=== PATIENT | female | born 1950 | race Asian ===

== ENCOUNTER 2019-05-03 08:19 | Emergency (ER) | payer OTHER ==
[~2019-05-03] VITALS: Ht 152.4 cm; Wt 59.0 kg
--- NOTE | 2019-05-03 08:20 | NUR ---
Patient to ER bed 7 to gown for evaluation. Side rails up. Report given to Priscilla DEJESUS.
[2019-05-03 08:34] VITALS: BP_SYST 150
--- NOTE | 2019-05-03 08:36 | NUR ---
Patient arrived via POV accompanied by family. Patient AAOx4, and ambulatory with slow gait. Patient primarily Cant[place] speaking, family for translation. Patient c/c of back pain x1 year. Patient states pain is in upper back and radiates down bilateral legs. Patient states it became worse last night, and patient was unable to sleep or rest. Will continue to follow up and monitor.
--- NOTE | 2019-05-03 08:38 | NUR ---
ER at bedside examining patient.
--- NOTE | 2019-05-03 09:13 | NUR ---
# 20 gauge angiocath placed to Right wrist. Use of asceptic technique. Opsite placed over site. Blood return noted. Blood for lab drawn from site. Flushed with 10 cc of normal saline. No evidence of infiltration noted. Patient tolerated well.
[2019-05-03] MEDS ORDERED: KETOROLAC TROMETHAMINE 30 MG VIAL IVP ONE (09:15)
[2019-05-03] MEDS ORDERED: ACETAMINOPHEN 500 MG TABLET PO ONE ×2 (09:15→10:15)
--- NOTE | 2019-05-03 09:29 | NUR ---
XR at bedside for exam.
[2019-05-03 09:51] LABS: BASOPHILS # (AUTO) 0.1 K/uL (0.0-0.2); BASOPHILS % (AUTO) 0.9 % (0.0-2.0); EOSINOPHILS % (AUTO) 0.6 % (0.0-4.0); HEMATOCRIT 31.7 % (36-48); HEMOGLOBIN 10.7 g/dL (12.0-16.0); LYMPHOCYTES # (AUTO) 0.8 K/uL (1.0-5.5); LYMPHOCYTES % (AUTO) 12.3 % (20.5-51.5); MEAN CORPUSCULAR HEMOGLOBIN 30 pg (27-31); MEAN CORPUSCULAR HGB CONC 34 % (32-36); MEAN CORPUSCULAR VOLUME 88 fL (79.0-98.0); MONOCYTES # (AUTO) 0.7 K/uL (0.0-1.0); MONOCYTES % (AUTO) 10.9 % (1.7-9.3); NEUTROPHILS # (AUTO) 4.8 K/uL (1.8-7.7); NEUTROPHILS % (AUTO) 75.3 % (40.0-70.0); PLATELET COUNT (AUTO) 366 K/uL (130-430); RED BLOOD CELL COUNT(AUTO) 3.62 MIL/uL (4.2-6.2); RED CELL DISTRIBUTION WIDTH 15.7 % (9.0-15.0); WHITE BLOOD COUNT (AUTO) 6.3 K/uL (4.8-10.8)
--- NOTE | 2019-05-03 09:57 | NUR ---
Urine specimen collected and analyzed in ER. Results given to ER .
[2019-05-03 10:00] LABS: CALCIUM 8.9 mg/dL (8.4-11.0); CREATININE 0.52 mg/dL (0.55-1.30); POTASSIUM 3.8 mmol/L (3.5-5.1); PROTHROMBIN TIME 9.8 SECS (9.5-12.5)
[2019-05-03 10:09] LABS: BILIRUBIN,URINE NEGATIVE (NEGATIVE); CLARITY/URINE CLEAR (CLEAR); COLOR,URINE YELLOW (YELLOW); GLUCOSE,URINE NEGATIVE (NEGATIVE); KETONES,URINE NEGATIVE (NEGATIVE); LEUKOCYTE ESTERASE ,URINE TRACE (NEGATIVE); NITRITE, URINE NEGATIVE (NEGATIVE); PROTEIN URINE NEGATIVE (NEGATIVE); UROBILINOGEN,URINE 0.2 (0.2-1.0)
--- NOTE | 2019-05-03 10:12 | NUR ---
MD spoke with patient regarding pain management, patient agreeable to tylenol. Will continue to follow up and monitor.
[2019-05-03 10:16] LABS: ALBUMIN 2.8 g/dL (3.4-4.8); FREE T4 (FREE THYROXINE) 0.7 ng/dL (0.6-1.6); TOTAL BILIRUBIN 0.3 mg/dL (0.0-1.0)
[2019-05-03 10:20] LABS: BLOOD, URINE TRACE (NEGATIVE)
[2019-05-03 10:22] LABS: BARBITURATE, URINE NEGATIVE (NEG <=200); BENZODIAZEPINE, URINE NEGATIVE (NEG <=150); CANNABINOID, URINE NEGATIVE (NEG <=50); COCAINE, URINE NEGATIVE (NEG <=150); METHAMPHETAMINES SCREEN,URINE NEGATIVE (NEG <=500); OPIATE, URINE NEGATIVE (NEG <=100); PHENCYCLIDINE SCREEN,URINE NEGATIVE (NEG <=25); UR TRICYCLIC ANTIDEPRESSANTS NEGATIVE (NEG <=300); URINE AMPHETAMINE NEGATIVE (NEG <=500); URINE METHADONE NEGATIVE (NEG <=200); URINE OXYCODONE SCREEN NEGATIVE (NEG <=100); URINE PROPOXYPHENE SCREEN NEGATIVE (NEG <=300)
[2019-05-03 10:32] LABS: BACTERIA,URINE FEW /HPF (None Seen); RBC,URINE 0-3 /HPF (0-3); WBC,URINE 0-3 /HPF (0-3)
[2019-05-03 10:33] LABS: MUCUS,URINE 1+ /LPF (None Seen)
[2019-05-03] MEDS ORDERED: NACL 0.9% 1,000 ML IV ONE (10:45)
--- NOTE | 2019-05-03 10:52 | NUR ---
Patient lab results reviewed by MD. Patient to have CTA and IVF. # 20 gauge angiocath placed to LAC. Use of asceptic technique. Opsite placed over site. Blood return noted. Flushed with 10 cc of normal saline. No evidence of infiltration noted. Patient tolerated well.
--- NOTE | 2019-05-03 11:20 | NUR ---
Consent signed for CTA.
--- NOTE | 2019-05-03 11:26 | NUR ---
Patient taken to CTA via gurney, escorted by [facility] interventional radiology technologist. Will continue to follow up and monitor.
[2019-05-03] MEDS ORDERED: IOHEXOL 350 mgI/mL, 150 ML INFUS..BTL IV ONE (11:27)
--- NOTE | 2019-05-03 11:45 | NUR ---
Patient brought back to room. Patient resting comfortably, needs are met at this time.
--- NOTE | 2019-05-03 11:50 | NUR ---
[facility] of care received, Pt on stable condition, family at bedside.
[2019-05-03 12:17] VITALS: BP_SYST 122
--- NOTE | 2019-05-03 12:18 | NUR ---
Patient given written and verbal discharge instructions and verbalizes understanding. ER MD discussed with patient the results and treatment provided. Patient in stable condition. ID arm band removed. IV catheter removed intact and dressing applied, no active bleeding. Rx of Ultram given. Patient educated on pain management and to follow up with PMD. Pain Scale 2/10 tolerable for patient . Opportunity for questions provided and answered. Medication side effect fact sheet provided.
== END 2019-05-03 12:17 | disposition home or self-care (01) ==
LOC: SED 08:19
DX: G89.29 Other chronic pain (principal); M54.5 Low back pain
CPT/HCPCS: 36415; 71045; 71275; 74018; 80053; 80307; 81000; 82140; 83605; 83880; 84439; 84484; 85025; 85379; 85610; 87040; 93005; 96374; 99284; J1885; J7030; Q9967

== ENCOUNTER 2020-12-22 15:13 | Inpatient (IN) | payer OTHER, SELFPAY ==
[~2020-12-22] VITALS: Ht 152.4 cm; Wt 65.8 kg
[2020-12-22 15:13] VITALS: BP_SYST 157
[2020-12-22] MEDS ORDERED: MORPHINE 2 MG/ML INJ. SYRINGE IVP ONE (17:00)
[2020-12-22] MEDS ORDERED: MORPHINE 2 MG/ML INJ. SYRINGE ONE (17:02)
[2020-12-22 17:04] LABS: EOSINOPHILS % (AUTO) 0.1 % (0.0-4.0); HEMATOCRIT 31.4 % (36-48); HEMOGLOBIN 11.7 g/dL (12.0-16.0); LYMPHOCYTES # (AUTO) 0.5 K/uL (1.0-5.5); MEAN CORPUSCULAR HEMOGLOBIN 35 pg (27-31); MEAN CORPUSCULAR HGB CONC 37 % (32-36); MEAN CORPUSCULAR VOLUME 93 fL (79.0-98.0); MONOCYTES # (AUTO) 0.5 K/uL (0.0-1.0); MONOCYTES % (AUTO) 4.8 % (1.7-9.3); NEUTROPHILS # (AUTO) 9.7 K/uL (1.8-7.7); NEUTROPHILS % (AUTO) 90.1 % (40.0-70.0); PLATELET COUNT (AUTO) 412 K/uL (130-430); RED BLOOD CELL COUNT(AUTO) 3.36 MIL/uL (4.2-6.2); WHITE BLOOD COUNT (AUTO) 10.8 K/uL (4.8-10.8)
[2020-12-22] MEDS ORDERED: ETOMIDATE 20 MG/ 10 ML VIAL (AMIDATE) ONE ×2 (17:34→17:37)
[2020-12-22 17:40] LABS: ANION GAP 11 (5-15); CALCIUM 7.8 mg/dL (8.4-11.0); CREATININE 0.91 mg/dL (0.55-1.30); GLUCOSE 112 mg/dL (70-99); POTASSIUM 3.8 mmol/L (3.5-5.1); UREA NITROGEN, BLOOD 14 mg/dL (8-21)
[2020-12-22 17:45] LABS: ALANINE AMINOTRANSFERASE 38 U/L (12-78); ALBUMIN 3.7 g/dL (3.4-4.8); ASPARTATE AMINOTRANSFERASE 49 U/L (10-37)
[2020-12-22] MEDS ORDERED: ETOMIDATE 20 MG/ 10 ML VIAL (AMIDATE) IVP ONE (17:45)
[2020-12-22 17:51] LABS: SODIUM SERUM 105 mmol/L (136-145)
[2020-12-22 17:52] LABS: CHLORIDE 73 mmol/L (98-107)
[2020-12-22] MEDS ORDERED: NACL 0.9% 1,000 ML IV SCH (18:45)
[2020-12-22] MEDS ORDERED: CABO20TA PO (18:59)
[2020-12-22] MEDS ORDERED: ASA81 PO (18:59)
[2020-12-22] MEDS ORDERED: LISI-209 PO (18:59)
[2020-12-22] MEDS ORDERED: EXEM25TA5 PO (18:59)
[2020-12-22 20:05] VITALS: BP_SYST 168
[2020-12-22 20:40] VITALS: BP_SYST 155
[2020-12-22] MEDS ORDERED: LORazepam 2 MG/ML VIAL IVP PRN (21:30)
[2020-12-22] MEDS ORDERED: NALOXONE HCL 0.4 MG/ML AMP (NARCAN) IVP PRN ×2 (21:30)
[2020-12-22] MEDS ORDERED: ACETAMINOPHEN 325 MG TABLET PO PRN (21:30)
[2020-12-22] MEDS ORDERED: ONDANSETRON HCL 4 MG/2 ML VIAL IVP PRN (21:30)
[2020-12-22] MEDS ORDERED: HYDROcodone/ACETAMIN 10-325 MG TAB PO PRN (21:30)
[2020-12-22] MEDS: HYDROcodone/ACETAMIN 5-325 MG TAB (NORCO/ VICODIN) PO PRN (23:42)
[2020-12-23] VITALS: BP_SYST 127
[2020-12-23 06:38] LABS: ANION GAP 8 (5-15); BASOPHILS % (AUTO) 0.2 % (0.0-2.0); CALCIUM 7.1 mg/dL (8.4-11.0); CREATININE 0.73 mg/dL (0.55-1.30); EOSINOPHILS % (AUTO) 0.5 % (0.0-4.0); GLUCOSE 85 mg/dL (70-99); HEMOGLOBIN 10.5 g/dL (12.0-16.0); LYMPHOCYTES # (AUTO) 0.9 K/uL (1.0-5.5); LYMPHOCYTES % (AUTO) 10.9 % (20.5-51.5); MEAN CORPUSCULAR HEMOGLOBIN 34 pg (27-31); MEAN CORPUSCULAR HGB CONC 36 % (32-36); MEAN CORPUSCULAR VOLUME 93 fL (79.0-98.0); MONOCYTES # (AUTO) 0.4 K/uL (0.0-1.0); MONOCYTES % (AUTO) 4.9 % (1.7-9.3); NEUTROPHILS # (AUTO) 6.8 K/uL (1.8-7.7); NEUTROPHILS % (AUTO) 83.5 % (40.0-70.0); PHOSPHORUS 2.2 mg/dL (2.7-4.5); PLATELET COUNT (AUTO) 313 K/uL (130-430); POTASSIUM 3.3 mmol/L (3.5-5.1); RED BLOOD CELL COUNT(AUTO) 3.13 MIL/uL (4.2-6.2); RED CELL DISTRIBUTION WIDTH 16.5 % (9.0-15.0); UREA NITROGEN, BLOOD 14 mg/dL (8-21); WHITE BLOOD COUNT (AUTO) 8.1 K/uL (4.8-10.8)
[2020-12-23 07:05] LABS: CHLORIDE 76 mmol/L (98-107); SODIUM SERUM 106 mmol/L (136-145)
[2020-12-23] MEDS: NACL 0.9% 1,000 ML IV SCH (07:30)
[2020-12-23 08:00] VITALS: BP_SYST 128
[2020-12-23] MEDS: ASPIRIN 81 MG TAB.CHEW PO SCH (08:44)
[2020-12-23] MEDS: lisinopriL 5 MG TABLET PO SCH (08:44)
[2020-12-23] MEDS: HYDROcodone/ACETAMIN 5-325 MG TAB (NORCO/ VICODIN) PO PRN (08:45)
[2020-12-23] MEDS ORDERED: CABOZANTINIB S MALATE 20 MG PO SCH (09:00)
[2020-12-23] MEDS ORDERED: EXEMESTANE 25 MG PO SCH (09:00)
[2020-12-23 12:10] VITALS: BP_SYST 114
[2020-12-23 16:12] VITALS: BP_SYST 128
[2020-12-23 16:42] LABS: ANION GAP 8 (5-15); CREATININE 0.88 mg/dL (0.55-1.30); GLUCOSE 91 mg/dL (70-99); UREA NITROGEN, BLOOD 15 mg/dL (8-21)
[2020-12-23 17:09] LABS: SODIUM SERUM 108 mmol/L (136-145)
[2020-12-23 17:10] LABS: CHLORIDE 78 mmol/L (98-107)
[2020-12-23 20:00] VITALS: BP_SYST 119
[2020-12-24 01:51] VITALS: BP_SYST 143
[2020-12-24] MEDS: NACL 0.9% 1,000 ML IV SCH ×3 (05:22→21:24)
[2020-12-24 06:23] LABS: ANION GAP 10 (5-15); CALCIUM 7.7 mg/dL (8.4-11.0); CREATININE 0.76 mg/dL (0.55-1.30); GLUCOSE 79 mg/dL (70-99); UREA NITROGEN, BLOOD 13 mg/dL (8-21)
[2020-12-24 06:26] LABS: BASOPHILS # (AUTO) 0.1 K/uL (0.0-0.2); BASOPHILS % (AUTO) 1.1 % (0.0-2.0); EOSINOPHILS # (AUTO) 0.1 K/uL (0.0-0.4); EOSINOPHILS % (AUTO) 1.8 % (0.0-4.0); HEMATOCRIT 27.8 % (36-48); LYMPHOCYTES # (AUTO) 0.7 K/uL (1.0-5.5); LYMPHOCYTES % (AUTO) 11.1 % (20.5-51.5); MEAN CORPUSCULAR HEMOGLOBIN 34 pg (27-31); MEAN CORPUSCULAR HGB CONC 36 % (32-36); MEAN CORPUSCULAR VOLUME 94 fL (79.0-98.0); MONOCYTES # (AUTO) 0.4 K/uL (0.0-1.0); MONOCYTES % (AUTO) 6.7 % (1.7-9.3); NEUTROPHILS # (AUTO) 5.1 K/uL (1.8-7.7); NEUTROPHILS % (AUTO) 79.3 % (40.0-70.0); PLATELET COUNT (AUTO) 307 K/uL (130-430); RED BLOOD CELL COUNT(AUTO) 2.95 MIL/uL (4.2-6.2); RED CELL DISTRIBUTION WIDTH 16.1 % (9.0-15.0); WHITE BLOOD COUNT (AUTO) 6.5 K/uL (4.8-10.8)
[2020-12-24 06:52] LABS: CHLORIDE 81 mmol/L (98-107); SODIUM SERUM 112 mmol/L (136-145)
[2020-12-24 08:00] VITALS: BP_SYST 117
[2020-12-24] MEDS: lisinopriL 5 MG TABLET PO SCH (09:27)
[2020-12-24] MEDS: ASPIRIN 81 MG TAB.CHEW PO SCH (09:27)
[2020-12-24 12:20] VITALS: BP_SYST 134
[2020-12-24 16:00] VITALS: BP_SYST 130
[2020-12-24 20:00] VITALS: BP_SYST 121
[2020-12-25 00:35] VITALS: BP_SYST 129
[2020-12-25 07:50] LABS: ANION GAP 7 (5-15); CALCIUM 8.4 mg/dL (8.4-11.0); CHLORIDE 88 mmol/L (98-107); CREATININE 0.73 mg/dL (0.55-1.30); GLUCOSE 91 mg/dL (70-99); POTASSIUM 3.9 mmol/L (3.5-5.1); UREA NITROGEN, BLOOD 13 mg/dL (8-21)
[2020-12-25 08:38] LABS: SODIUM SERUM 117 mmol/L (136-145)
[2020-12-25 08:45] VITALS: BP_SYST 132
[2020-12-25] MEDS: ASPIRIN 81 MG TAB.CHEW PO SCH (10:46)
[2020-12-25] MEDS: lisinopriL 5 MG TABLET PO SCH (10:47)
[2020-12-25 12:00] VITALS: BP_SYST 134
[2020-12-25 16:00] VITALS: BP_SYST 135
[2020-12-25 20:00] VITALS: BP_SYST 104
[2020-12-25] MEDS: NACL 0.9% 1,000 ML IV SCH (23:32)
[2020-12-26 00:23] VITALS: BP_SYST 119
[2020-12-26 08:00] VITALS: BP_SYST 133
[2020-12-26 08:02] LABS: ANION GAP 10 (5-15); CHLORIDE 96 mmol/L (98-107); CREATININE 0.69 mg/dL (0.55-1.30); GLUCOSE 87 mg/dL (70-99); POTASSIUM 4.5 mmol/L (3.5-5.1); SODIUM SERUM 127 mmol/L (136-145); UREA NITROGEN, BLOOD 12 mg/dL (8-21)
[2020-12-26] MEDS: ASPIRIN 81 MG TAB.CHEW PO SCH (08:54)
[2020-12-26] MEDS: lisinopriL 5 MG TABLET PO SCH (08:55)
[2020-12-26 12:00] VITALS: BP_SYST 143
[2020-12-26 15:39] VITALS: BP_SYST 143
== END 2020-12-26 16:00 | disposition home or self-care (01) | DRG 563 ==
LOC: SED 15:13 → SMU 18:43 → STU 12-23 19:18 → SMU 12-26 11:03
PROVIDERS: ADMIT Internal Medicine Hospice and Palliative Medicine; ATTEND Internal Medicine Hospice and Palliative Medicine
PROC: 0PSCXZZ Reposition Right Humeral Head, External Approach (ICD-10-PCS; principal; 2020-12-22)
DX: S42.91XA Fracture of right shoulder girdle, part unspecified, initial encounter for closed fracture (principal); E87.1 Hypo-osmolality and hyponatremia; Z20.822 Contact with and (suspected) exposure to COVID-19; D64.9 Anemia, unspecified; R73.9 Hyperglycemia, unspecified; E83.52 Hypercalcemia; R74.01 Elevation of levels of liver transaminase levels; X58.XXXA Exposure to other specified factors, initial encounter; E87.8 Other disorders of electrolyte and fluid balance, not elsewhere classified; I10 Essential (primary) hypertension; W19.XXXA Unspecified fall, initial encounter; Z85.528 Personal history of other malignant neoplasm of kidney; Z90.5 Acquired absence of kidney; Y93.89 Activity, other specified; Y92.89 Other specified places as the place of occurrence of the external cause; Y99.8 Other external cause status; Z79.82 Long term (current) use of aspirin; Z79.899 Other long term (current) drug therapy
CPT/HCPCS: 36415; 71045; 73030; 80048; 80053; 82533; 83735-TC; 84100-TC; 84443-TC; 84484; 85025; 93005; 93306; 96374; 97116-GP; 97163; 97530-GP; G0378; J2270; J2405; J3490

== ENCOUNTER 2022-05-18 11:38 | Emergency (ER) | payer OTHER ==
[~2022-05-18] VITALS: Ht 160 cm; Wt 61.2 kg
[~2022-05-18 11:38] MED LIST: ASA81 PO; LISI-209 PO
[2022-05-18 11:47] VITALS: BP_SYST 172
--- NOTE | 2022-05-18 11:51 | NUR ---
Pt in WR with son, unable to urinate since this am at 0600, but has no pain at this time. Informed to let staff know if she experiences severe pain. Urine cup provided in case she needs to urinate. VSS.
[2022-05-18 13:10] LABS: BILIRUBIN,URINE 2+ (NEGATIVE); CLARITY/URINE CLEAR (CLEAR); GLUCOSE,URINE TRACE (NEGATIVE); KETONES,URINE 1+ (NEGATIVE); LEUKOCYTE ESTERASE ,URINE NEGATIVE (NEGATIVE); NITRITE, URINE NEGATIVE (NEGATIVE); PROTEIN URINE 2+ (NEGATIVE)
[2022-05-18 13:12] LABS: BLOOD, URINE TRACE (NEGATIVE); COLOR,URINE YELLOW (YELLOW)
[2022-05-18 13:18] LABS: BACTERIA,URINE RARE /HPF (None Seen); WBC,URINE 0-3 /HPF (0-3)
--- NOTE | 2022-05-18 15:13 | NUR ---
#16 FR Dumas catheter with use of sterile technique. Immediate return of 120 cc dark yellow urine noted. Bedside drainage bag placed below level of bladder. Urine sample collected and sent to lab. Pt tolerated procedure well. Patient unable to toilet self.
[2022-05-18] MEDS ORDERED: TAMS-11 PO (16:07)
[2022-05-18 16:25] VITALS: BP_SYST 172
--- NOTE | 2022-05-18 16:25 | NUR ---
Patient given written and verbal discharge instructions and verbalizes understanding. ER MD discussed with patient the results and treatment provided. Patient in stable condition. ID arm band removed. Rx of TAMSULOSIN given. Patient educated on pain management and to follow up with PMD. Pain Scale 0. Opportunity for questions provided and answered. Medication side effect fact sheet provided.
== END 2022-05-18 16:25 | disposition home or self-care (01) ==
LOC: SED 11:38
DX: R33.9 Retention of urine, unspecified (principal); I10 Essential (primary) hypertension; Z79.899 Other long term (current) drug therapy
CPT/HCPCS: 81000; 99284